=== PATIENT | female | born 1955 | race Caucasian/White ===

== ENCOUNTER 2018-07-27 11:40 | Emergency (ER) | payer OTHER ==
[2018-07-27] MEDS ORDERED: HYDROmorphone 2 MG/ML SDV IM ONE (11:46)
--- NOTE | 2018-07-27 11:46 | EDM.PDOC ---
ED HPI GENERAL MEDICAL PROBLEM - General Chief Complaint: Lower Extremity Injury/Pain Stated Complaint: FELL-INJURED RT KNEE Time Seen by Provider: 07/27/18 11:40 Source of Information: Reports: Patient, Family History Limitations: Reports: No Limitations - History of Present Illness INITIAL COMMENTS - FREE TEXT/NARRATIVE: 63 y.o.w.f in prev healthy condition, came with her daughter to the ed after she fell down the stairs and hit her right knee. Pt has pain at her right knee and can not bear weight onto her right leg because of knee pain. No N/V/D or any other acute medical issues. BP 122/88 RR 22 pulse ox 100% on RA Temp 36.8 pulse 90 Onset Date: 07/27/18 Onset Time: 10:00 Duration: Hour(s): Location: Reports: Lower Extremity, Right Quality: Reports: Stabbing Severity: Moderate Improves with: Reports: Rest Worsens with: Reports: Movement Context: Reports: Trauma Right Knee Pain Score (Numeric/FACES): 10 - Related Data Allergies Allergy/AdvReac Type Severity Reaction Status Date / Time tramadol Allergy Tachycardia Verified 07/27/18 12:00 Home Meds: Home Meds Acetaminophen/oxyCODONE [Percocet 325-5 MG] 1 each PO Q6HR PRN #20 tab 07/27/18 [Rx] buPROPion [Wellbutrin] 75 mg PO DAILY 07/27/18 [History] Review of Systems - Review of Systems Review Of Systems: See Below Constitutional: Reports: No Symptoms Eyes: Reports: No Symptoms Ears: Reports: No Symptoms Nose: Reports: No Symptoms Mouth/Throat: Reports: No Symptoms Respiratory: Reports: No Symptoms Cardiovascular: Reports: No Symptoms GI/Abdominal: Reports: No Symptoms Genitourinary: Reports: No Symptoms Musculoskeletal: Reports: Joint Pain (right knee) Skin: Reports: No Symptoms Neurological: Reports: No Symptoms Psychiatric: Reports: No Symptoms ED EXAM, GENERAL - Physical Exam Exam: See Below Exam Limited By: No Limitations General Appearance: Alert, WD/WN, Moderate Distress Eye Exam: Left Eye: Bleeding Ears: Normal External Exam Ear Exam: Bilateral Ear: Auricle Normal Nose: Normal Inspection, Normal Mucosa, No Blood Throat/Mouth: Normal Inspection, Normal Lips, Normal Voice, No Airway Compromise Head: Atraumatic, Normocephalic Neck: Normal Inspection, Supple, Non-Tender Respiratory/Chest: No Respiratory Distress, Lungs Clear, Normal Breath Sounds, Chest Non-Tender Cardiovascular: Normal Peripheral Pulses, Regular Rate, Rhythm, No Edema, No Murmur Peripheral Pulses: 2+: Brachial (L) GI/Abdominal: Normal Bowel Sounds, Soft, Non-Tender, No Organomegaly, No Abnormal Bruit, No Mass, Pelvis Stable (Female) Exam: Deferred Rectal (Female) Exam: Deferred Back Exam: Normal Inspection, Full Range of Motion Extremities: Limited Range of Motion (right knee) Neurological: Alert, Oriented, CN II-XII Intact, Normal Cognition, Abnormal Gait Psychiatric: Normal Affect, Normal Mood Skin Exam: Warm, Dry, Intact, Normal Color, No Rash Lymphatic: No Adenopathy Course - Vital Signs Text/Narrative:: 63 y.o.w.f in prev healthy condition, came with her daughter to the ed after she fell down the stairs and hit her right knee. Pt has pain at her right knee and can not bear weight onto her right leg because of knee pain. No N/V/D or any other acute medical issues. BP 122/88 RR 22 pulse ox 100% on RA Temp 36.8 pulse 90 PE: WNWD W F with knee pain after a fall Imaging: Nondisplaced lateral tibial Plateau Fx with associated large hemarthrosis Impression: Nondisplaced lateral tibial Plateau Fx with associated large hemarthrosis, closed Tx: Dilaudid, knee immobilizer, crutches 1.00 pm Consultation: Dr. Taylor, Ortho: Knee immobilizer, crutches, no weight bearing, 10.30 am clinic Reexam: Improved, was able to ambulate well with crutches Plan; D/C with instructions Last Recorded V/S: Last Vital Signs Temp 36.3 C 07/27/18 11:40 Pulse 90 07/27/18 11:40 Resp 22 H 07/27/18 11:40 BP 122/81 07/27/18 11:40 Pulse Ox 100 07/27/18 11:40 - Orders/Labs/Meds Orders: Active Orders 24 hr Category Date Time Status Knee 1V or 2V Rt [CR] Stat Exams 07/27/18 12:39 Taken Lower Extremity wo Cont Rt [CT] Stat Exams 07/27/18 12:39 Taken Meds: Medications Discontinued Medications Generic Name Dose Route Start Last Admin Trade Name Freq PRN Reason Stop Dose Admin Hydromorphone HCl 1 mg 07/27/18 11:46 07/27/18 11:45 Dilaudid IM 07/27/18 11:47 1 mg ONETIME ONE Administration Oxycodone/Acetaminophen 1 tab 07/27/18 13:25 07/27/18 13:38 Percocet 325-5 Mg PO 07/27/18 13:26 1 tab ONETIME STA Administration Departure - Departure Time of Disposition: 13:38 Disposition: Home, Self-Care 01 Condition: Good Clinical Impression: Tibial plateau fracture, right Qualifiers: Encounter type: initial encounter Fracture type: closed Qualified Code(s): S82.141A - Displaced bicondylar fracture of right tibia, initial encounter for closed fracture - Discharge Information Prescriptions: Acetaminophen/oxyCODONE [Percocet 325-5 MG] 1 each PO Q6HR PRN #20 tab PRN Reason: for severe pain only Referrals: PCP,None [Primary Care Provider] - William Taylor DO [Physician] - Forms: ED Department Discharge Additional Instructions: Rest Ice and elevation, knee immobilizer, crutches, no weight bearing, F/O this Saturday morning with Dr. Taylor, Ortho at 10.30 am. Please take Motrin for moderate pain, Percocet for severe pain, please come back if your symptoms get worse acutely. - My Orders Last 24 Hours: My Active Orders 07/27/18 12:39 Knee 1V or 2V Rt [CR] Stat Lower Extremity wo Cont Rt [CT] Stat - Assessment/Plan Last 24 Hours: My Active Orders 07/27/18 12:39 Knee 1V or 2V Rt [CR] Stat Lower Extremity wo Cont Rt [CT] Stat
[2018-07-27] MEDS ORDERED: Acetaminophen/oxyCODONE 325-5 MG Tab PO STA (13:25)
== END 2018-07-27 13:45 | disposition home or self-care (01) ==
LOC: FB.ED 11:40
DX: S82.144A Nondisplaced bicondylar fracture of right tibia, initial encounter for closed fracture (principal); Z88.8 Allergy status to other drugs, medicaments and biological substances; W10.9XXA Fall (on) (from) unspecified stairs and steps, initial encounter
CPT/HCPCS: 73560; 73700; 96372; 99284; A9270; J1170